=== PATIENT | male | born 1960 | race Caucasian/White ===

== ENCOUNTER 2016-07-12 10:45 | Day surgery (SDC) | payer OTHER ==
[2016-07-12] MEDS ORDERED: SIMETHICONE 40 MG/0.6 ML 30 ML BOTTLE PO ONE (11:23)
[2016-07-12] MEDS ORDERED: LACTATED RINGERS 1,000 ML IV ONE (11:23)
[2016-07-12] MEDS ORDERED: MIDAZOLAM 2 MG/2 ML VIAL IVP ONE (11:23)
[2016-07-12] MEDS ORDERED: fentaNYL 250 MCG/5 ML VIAL IVP ONE (11:23)
== END 2016-07-12 10:46 | disposition home or self-care (01) ==
PROC: 0DBN8ZX Excision of Sigmoid Colon, Via Natural or Artificial Opening Endoscopic, Diagnostic (ICD-10-PCS; principal; 2016-07-12 11:45)
DX: Z12.11 Encounter for screening for malignant neoplasm of colon (principal); D12.5 Benign neoplasm of sigmoid colon; K64.8 Other hemorrhoids; I10 Essential (primary) hypertension; E11.9 Type 2 diabetes mellitus without complications; Z79.84 Long term (current) use of oral hypoglycemic drugs; Z79.82 Long term (current) use of aspirin; Z83.3 Family history of diabetes mellitus; Z80.0 Family history of malignant neoplasm of digestive organs
CPT/HCPCS: 45385; A9270; J3010; J7120

== ENCOUNTER 2018-12-13 08:00 | Outpatient (CLI) | payer OTHER ==
[2018-12-13 12:52] LABS: BASOPHILS % (AUTO) 0.7 %; EOSINOPHILS # (AUTO) 0.4 10^3/uL (0.0-0.7); EOSINOPHILS % (AUTO) 7.5 %; HGB - HEMOGLOBIN 14.1 g/dL (14.0-18.0); LYMPHOCYTES # (AUTO) 1.9 10^3/uL (1.5-3.5); LYMPHOCYTES % (AUTO) 34.6 %; MEAN CORPUSCULAR HEMOGLOBIN 32.6 pg (27.0-31.0); MEAN CORPUSCULAR VOLUME 96.1 fL (80.0-94.0); MEAN PLATELET VOLUME 9.3 fL (7.4-11.4); MONOCYTES # (AUTO) 0.5 10^3/uL (0.0-1.0); MONOCYTES % (AUTO) 9.1 %; NEUTROPHILS # (AUTO) 2.6 10^3/uL (1.5-6.6); NEUTROPHILS % (AUTO) 47.7 %; PLT - PLATELET COUNT 321 10^3/uL (130-450); RED BLOOD COUNT 4.32 10^6/uL (4.70-6.10); RED CELL DISTRIBUTION WIDTH 12.5 % (12.0-15.0); WHITE BLOOD COUNT 5.5 x10^3/uL (4.8-10.8)
[2018-12-13 13:15] LABS: HB2 TOTAL 15.5 g/dL; HEMOGLOBIN A1C 0.73 g/dL; HEMOGLOBIN A1C % 6.5 % (4.6-6.2)
[2018-12-13 13:34] LABS: CARBON DIOXIDE - CO2 28 mmol/L (21-32); CHLORIDE 101 mmol/L (101-111); SODIUM 140 mmol/L (135-145)
[2018-12-13 13:35] LABS: ALBUMIN 4.5 g/dL (3.2-5.5); ALBUMIN/GLOBULIN RATIO 1.8 (1.0-2.2); ALKALINE PHOSPHATASE 68 IU/L (42-121); ALT ALANINE AMINOTRANSFERASE 20 IU/L (10-60); AST ASPARTATE AMINOTRANSFERASE 21 IU/L (10-42); BILIRUBIN,TOTAL 0.7 mg/dL (0.2-1.0); BUN - BLOOD UREA NITROGEN 27 mg/dL (6-20); CALCIUM 9.5 mg/dL (8.5-10.3); GFR - MDRD 77 (>89); GLUCOSE 130 mg/dL (70-100)
[2018-12-13 13:36] LABS: CHOL/HDL RATIO 1.9 (<5.0); CHOLESTEROL 144 mg/dL; HDL CHOLESTEROL 74 mg/dL
== END 2018-12-13 23:59 ==
LOC: LAB.WCP 08:00
PROVIDERS: ATTEND Family Medicine
DX: E11.9 Type 2 diabetes mellitus without complications (principal); E78.5 Hyperlipidemia, unspecified; Z12.5 Encounter for screening for malignant neoplasm of prostate; I10 Essential (primary) hypertension
CPT/HCPCS: 36415; 80053; 80061; 83036; 83721; 84153; 84443; 85025

== ENCOUNTER 2019-11-01 19:25 | Outpatient (CLI) | payer OTHER ==
--- NOTE | 2019-11-02 09:37 | Ultrasound Report ---
PROCEDURE: Head or Neck Soft Tissue INDICATIONS: ADENOPATHY TECHNIQUE: Real time scanning was performed of the neck region of interest, with image documentation . COMPARISON: None. FINDINGS: There is a mildly hypervascular hypoechoic mass within the left level 1B lymph node region measuring 24 x 14 x 25 mm. There is no visualization of a fatty hilum. IMPRESSION: Hypervascular hypoechoic mass within the left neck as above. While this could be related to reactive adenopathy, given lack of morphologic features of the normal enlarged lymph node, other etiologies bowling [place] as neoplasm should be considered. Further evaluation with CT and potentially biopsy is recommended . Reviewed by: Mattie White MD on 11/02/2019 9:36 AM PDT Approved by: Mattie White MD on 11/02/2019 9:36 AM PDT Station ID: [id number]
== END 2019-11-01 19:26 | disposition home or self-care (01) ==
LOC: DI 19:25
PROVIDERS: ATTEND Family Medicine
DX: R93.89 Abnormal findings on diagnostic imaging of other specified body structures (principal)
CPT/HCPCS: 76536

== ENCOUNTER 2019-11-07 08:00 | Outpatient (CLI) | payer OTHER ==
[2019-11-07 19:40] LABS: CALCIUM 9.2 mg/dL (8.5-10.3); CREATININE 0.9 mg/dL (0.6-1.2)
== END 2019-11-07 23:59 | disposition home or self-care (01) ==
LOC: LAB 08:00
PROVIDERS: ATTEND Physician Assistant
DX: Z79.899 Other long term (current) drug therapy (principal)
CPT/HCPCS: 36415; 80048

== ENCOUNTER 2019-11-07 17:42 | Outpatient (CLI) | payer OTHER ==
[2019-11-07 18:06] LABS: MICROALBUM/CREATININE RATIO,UR 3.7 ug/mg (<30.0); MICROALBUMIN,URINE 0.5 mg/dL (0-300.0)
[2019-11-07] MEDS ORDERED: IOVERSOL 320 100 ML VIAL IVP ONE ×2 (18:58→20:08)
--- NOTE | 2019-11-08 13:49 | CT Report ---
PROCEDURE: SOFT TISSUE NECK W INDICATIONS: ADENOPATHY CONTRAST: IV CONTRAST: Optiray 320 ml: 100 PO CONTRAST: *NO PO CONTRAST TECHNIQUE: After the administration of intravenous contrast, 3.0 mm axial sections acquired from the sella to th e aortic arch. Additional oblique axial 3.0 mm sections acquired through the pharynx. 3 mm thick co ira reformats were generated. For radiation dose reduction, the following was used: automated exp osure control, adjustment of mA and/or kV according to patient size. COMPARISON: Correlation is made with prior ultrasound dated 11/01/2019. FINDINGS: Image quality: Excellent. Lymph nodes: The area of clinical concern is marked with a soft tissue marker. Immediately deep to t his marker, there is an abnormally enlarged lymph nodes seen on the left at level 2A that measures 19 x 14 mm in greatest axial dimension, with a craniocaudal extent of 2.7 cm. Additional borderline pro minent level 2 lymph nodes are seen. No definite enlarged right-sided lymph nodes are seen. Vessels: Visualized vasculature appears patent. Neck spaces: The oropharynx, nasopharynx, and pharynx demonstrate no mucosal lesions. The vocal cor ds, false vocal cords, pyriform sinuses, epiglottis, vallecula, and tongue base all appear normal. E xtramucosal spaces appear unremarkable. Glands: The parotid and submandibular glands appear normal. The thyroid is normal in size. Miscellaneous: Visualized brain and orbits appear normal. Minimal emphysematous changes are seen at the lung apices. Superficial soft tissues appear normal. Bones: No suspicious bony lesions. Visualized sinuses and mastoids appear unremarkable. IMPRESSION: There is an enlarged left level 2A lymph node. In a patient of this age, this is highly suspicious fo r metastatic disease. ENT consultation and biopsy are recommended for further evaluation. Reviewed by: Marques Butts MD on 11/08/2019 12:47 PM [facility] Approved by: Marques Butts MD on 11/08/2019 12:47 PM VERONICA Station ID: [id number]
== END 2019-11-07 17:43 | disposition home or self-care (01) ==
LOC: LAB 17:42
PROVIDERS: ATTEND Family Medicine
DX: R59.0 Localized enlarged lymph nodes (principal)
CPT/HCPCS: 70491; 82043; 82570; Q9967

== ENCOUNTER 2020-07-14 07:37 | Outpatient (CLI) | payer OTHER ==
[2020-07-14 12:09] LABS: MICROALBUM/CREATININE RATIO,UR 2.8 ug/mg (<30.0); MICROALBUMIN,URINE 0.6 mg/dL (0-300.0)
[2020-07-14 12:30] LABS: ALBUMIN 4.6 g/dL (3.2-5.5); ALBUMIN/GLOBULIN RATIO 1.8 (1.0-2.2); ALKALINE PHOSPHATASE 70 IU/L (42-121); ALT ALANINE AMINOTRANSFERASE 16 IU/L (10-60); AST ASPARTATE AMINOTRANSFERASE 19 IU/L (10-42); BILIRUBIN,TOTAL 0.6 mg/dL (0.2-1.0); BUN - BLOOD UREA NITROGEN 29 mg/dL (6-20); CALCIUM 9.7 mg/dL (8.5-10.3); CARBON DIOXIDE - CO2 28 mmol/L (21-32); CHLORIDE 98 mmol/L (101-111); CHOL/HDL RATIO 2.1 (<5.0); CHOLESTEROL 163 mg/dL; GFR - MDRD 77 (>89); GLUCOSE 119 mg/dL (70-100); HDL CHOLESTEROL 79 mg/dL; LDL CHOLESTEROL,CALCULATED 75 mg/dL; LDL/HDL RATIO 0.9 (<3.6); POTASSIUM 4.3 mmol/L (3.5-5.0); SODIUM 136 mmol/L (135-145); TOTAL PROTEIN 7.2 g/dL (6.7-8.2); TRIGLYCERIDES 47 mg/dL; VLDL CHOLESTEROL 9 mg/dL
[2020-07-14 12:37] LABS: THYROID STIMULATING HORMONE 0.71 uIU/mL (0.34-5.60)
[2020-07-14 12:48] LABS: FOLATE 17.41 ng/mL (5.90 - >24.8)
[2020-07-14 13:02] LABS: BASOPHILS % (AUTO) 0.7 %; EOSINOPHILS # (AUTO) 0.1 10^3/uL (0.0-0.7); EOSINOPHILS % (AUTO) 4.5 %; HCT - HEMATOCRIT 42.2 % (42.0-52.0); HGB - HEMOGLOBIN 14.3 g/dL (14.0-18.0); LYMPHOCYTES # (AUTO) 0.6 10^3/uL (1.5-3.5); LYMPHOCYTES % (AUTO) 20.8 %; MEAN CORPUSCULAR HEMOGLOBIN 32.1 pg (27.0-31.0); MEAN CORPUSCULAR HGB CONC 33.9 g/dL (32.0-36.0); MEAN CORPUSCULAR VOLUME 94.6 fL (80.0-94.0); MEAN PLATELET VOLUME 9.1 fL (7.4-11.4); MONOCYTES # (AUTO) 0.5 10^3/uL (0.0-1.0); MONOCYTES % (AUTO) 15.6 %; NEUTROPHILS # (AUTO) 1.7 10^3/uL (1.5-6.6); NEUTROPHILS % (AUTO) 58.4 %; PLT - PLATELET COUNT 266 10^3/uL (130-450); RED BLOOD COUNT 4.46 10^6/uL (4.70-6.10); RED CELL DISTRIBUTION WIDTH 11.3 % (12.0-15.0); WHITE BLOOD COUNT 2.9 x10^3/uL (4.8-10.8)
[2020-07-14 13:08] LABS: SLIDE REVIEW? Indicated
[2020-07-14 13:19] LABS: ESTIMATED AVERAGE GLUCOSE 143 mg/dL (70-100); HEMOGLOBIN A1c% 6.6 % (4.27-6.07)
[2020-07-14 13:39] LABS: PLATELET ESTIMATE, MANUAL NORMAL (130-450,000) (NORMAL); PLATELET MORPHOLOGY NORMAL APPEARANCE (NORMAL); RBC MORPHOLOGY (MULTIPLE) NORMAL APPEARANCE (NORMAL); WBC MORPHOLOGY (MULTIPLE) NORMAL APPEARANCE (NORMAL)
== END 2020-07-14 23:59 | disposition home or self-care (01) ==
LOC: LAB.WCP 07:37
PROVIDERS: ATTEND Internal Medicine
DX: E11.9 Type 2 diabetes mellitus without complications (principal); Z12.5 Encounter for screening for malignant neoplasm of prostate
CPT/HCPCS: 36415; 80053; 80061; 81599; 82043; 82570; 82607; 82746; 82784; 83036; 83721; 84153; 84155; 84165; 84207; 84443; 85025; 86334

== ENCOUNTER 2020-12-15 08:00 | Outpatient (CLI) | payer OTHER ==
[2020-12-15 12:25] LABS: BASOPHILS % (AUTO) 0.7 %; EOSINOPHILS # (AUTO) 0.3 10^3/uL (0.0-0.7); EOSINOPHILS % (AUTO) 7.4 %; HGB - HEMOGLOBIN 14.3 g/dL (14.0-18.0); LYMPHOCYTES # (AUTO) 0.9 10^3/uL (1.5-3.5); LYMPHOCYTES % (AUTO) 19.9 %; MEAN CORPUSCULAR HGB CONC 33.3 g/dL (32.0-36.0); MEAN CORPUSCULAR VOLUME 96.2 fL (80.0-94.0); MEAN PLATELET VOLUME 9.4 fL (7.4-11.4); MONOCYTES # (AUTO) 0.6 10^3/uL (0.0-1.0); MONOCYTES % (AUTO) 12.7 %; NEUTROPHILS # (AUTO) 2.6 10^3/uL (1.5-6.6); NEUTROPHILS % (AUTO) 59.1 %; PLT - PLATELET COUNT 293 10^3/uL (130-450); RED BLOOD COUNT 4.47 10^6/uL (4.70-6.10); RED CELL DISTRIBUTION WIDTH 12.4 % (12.0-15.0); WHITE BLOOD COUNT 4.3 x10^3/uL (4.8-10.8)
[2020-12-15 12:49] LABS: ESTIMATED AVERAGE GLUCOSE 143 mg/dL (70-100); HEMOGLOBIN A1c% 6.6 % (4.27-6.07)
[2020-12-15 12:52] LABS: FREE T3 3.31 pg/mL (2.5-3.9); THYROID STIMULATING HORMONE 2.39 uIU/mL (0.34-5.60)
[2020-12-15 13:07] LABS: ALBUMIN 4.9 g/dL (3.2-5.5); ALBUMIN/GLOBULIN RATIO 1.9 (1.0-2.2); BILIRUBIN,TOTAL 0.7 mg/dL (0.2-1.0); CREATININE 0.9 mg/dL (0.6-1.2); POTASSIUM 4.3 mmol/L (3.5-5.0); TOTAL PROTEIN 7.5 g/dL (6.7-8.2)
== END 2020-12-15 23:59 | disposition home or self-care (01) ==
LOC: LAB.WCP 08:00
PROVIDERS: ATTEND Internal Medicine
DX: C09.9 Malignant neoplasm of tonsil, unspecified (principal); E11.9 Type 2 diabetes mellitus without complications
CPT/HCPCS: 36415; 80053; 83036; 83615; 84443; 84481; 85025

== ENCOUNTER 2021-04-22 08:00 | Outpatient (CLI) | payer OTHER ==
[2021-04-22 12:38] LABS: ESTIMATED AVERAGE GLUCOSE 137 mg/dL (70-100); HEMOGLOBIN A1c% 6.4 % (4.27-6.07)
[2021-04-22 13:00] LABS: BUN - BLOOD UREA NITROGEN 32 mg/dL (6-20); CALCIUM 9.6 mg/dL (8.5-10.3); CARBON DIOXIDE - CO2 30 mmol/L (21-32); CHLORIDE 100 mmol/L (101-111); CHOL/HDL RATIO 1.9 (<5.0); CHOLESTEROL 137 mg/dL; CREATININE 0.8 mg/dL (0.6-1.2); GFR - MDRD 99 (>89); GLUCOSE 122 mg/dL (70-100); HDL CHOLESTEROL 71 mg/dL; LDL CHOLESTEROL,CALCULATED 57 mg/dL; LDL/HDL RATIO 0.8 (<3.6); POTASSIUM 4.2 mmol/L (3.5-5.0); SODIUM 137 mmol/L (135-145); TRIGLYCERIDES 43 mg/dL; VLDL CHOLESTEROL 9 mg/dL
[2021-04-22 13:05] LABS: CREATININE,URINE 67.8 mg/dL; MICROALBUM/CREATININE RATIO,UR 2.9 ug/mg (<30.0); MICROALBUMIN,URINE 0.2 mg/dL (0-300.0)
== END 2021-04-22 23:59 ==
LOC: LAB.WCP 08:00
PROVIDERS: ATTEND Internal Medicine
DX: E11.9 Type 2 diabetes mellitus without complications (principal)
CPT/HCPCS: 36415; 80048; 80061; 82043; 82570; 83036; 83721

== ENCOUNTER 2021-10-21 07:04 | Outpatient (CLI) | payer OTHER ==
[2021-10-21 11:49] LABS: ESTIMATED AVERAGE GLUCOSE 134 mg/dL (70-100); HEMOGLOBIN A1c% 6.3 % (4.27-6.07)
[2021-10-21 11:50] LABS: BASOPHILS % (AUTO) 0.8 %; EOSINOPHILS # (AUTO) 0.1 10^3/uL (0.0-0.7); EOSINOPHILS % (AUTO) 2.9 %; HCT - HEMATOCRIT 41.3 % (42.0-52.0); LYMPHOCYTES # (AUTO) 0.8 10^3/uL (1.5-3.5); LYMPHOCYTES % (AUTO) 20.5 %; MEAN CORPUSCULAR HGB CONC 33.9 g/dL (32.0-36.0); MEAN CORPUSCULAR VOLUME 94.3 fL (80.0-94.0); MEAN PLATELET VOLUME 9.3 fL (7.4-11.4); MONOCYTES # (AUTO) 0.5 10^3/uL (0.0-1.0); MONOCYTES % (AUTO) 12.1 %; NEUTROPHILS # (AUTO) 2.4 10^3/uL (1.5-6.6); NEUTROPHILS % (AUTO) 63.4 %; PLT - PLATELET COUNT 268 10^3/uL (130-450); RED BLOOD COUNT 4.38 10^6/uL (4.70-6.10); RED CELL DISTRIBUTION WIDTH 12.4 % (12.0-15.0); WHITE BLOOD COUNT 3.8 x10^3/uL (4.8-10.8)
[2021-10-21 11:57] LABS: ALBUMIN 4.5 g/dL (3.2-5.5); ALBUMIN/GLOBULIN RATIO 1.7 (1.0-2.2); ALKALINE PHOSPHATASE 64 IU/L (42-121); ALT ALANINE AMINOTRANSFERASE 18 IU/L (10-60); AST ASPARTATE AMINOTRANSFERASE 19 IU/L (10-42); BILIRUBIN,TOTAL 0.6 mg/dL (0.2-1.0); BUN - BLOOD UREA NITROGEN 28 mg/dL (6-20); CALCIUM 9.7 mg/dL (8.5-10.3); CARBON DIOXIDE - CO2 29 mmol/L (21-32); CHLORIDE 101 mmol/L (101-111); CHOL/HDL RATIO 1.9 (<5.0); CHOLESTEROL 139 mg/dL; GFR - MDRD 76 (>89); GLUCOSE 130 mg/dL (70-100); HDL CHOLESTEROL 75 mg/dL; POTASSIUM 4.3 mmol/L (3.5-5.0); SODIUM 139 mmol/L (135-145); TOTAL PROTEIN 7.1 g/dL (6.7-8.2); TRIGLYCERIDES 36 mg/dL
[2021-10-21 12:10] LABS: THYROID STIMULATING HORMONE 1.45 uIU/mL (0.34-5.60)
[2021-10-21 12:14] LABS: CREATININE,URINE 138.6 mg/dL; MICROALBUM/CREATININE RATIO,UR 2.9 ug/mg (<30.0); MICROALBUMIN,URINE 0.4 mg/dL (0-300.0)
== END 2021-10-21 07:05 | disposition home or self-care (01) ==
LOC: LAB.N 07:04
PROVIDERS: ATTEND Internal Medicine
DX: I10 Essential (primary) hypertension (principal); E11.9 Type 2 diabetes mellitus without complications; Z12.5 Encounter for screening for malignant neoplasm of prostate; F41.9 Anxiety disorder, unspecified; F32.A Depression, unspecified
CPT/HCPCS: 36415; 80053; 80061; 82043; 82570; 83036; 83721; 84153; 84443; 85025

== ENCOUNTER 2022-05-24 08:34 | Outpatient (CLI) | payer OTHER ==
[2022-05-24 12:20] LABS: CALCIUM 9.6 mg/dL (8.5-10.3); CREATININE 0.9 mg/dL (0.6-1.2); POTASSIUM 4.6 mmol/L (3.5-5.0)
[2022-05-24 14:03] LABS: ESTIMATED AVERAGE GLUCOSE 146 mg/dL (70-100); HEMOGLOBIN A1c% 6.7 % (4.27-6.07)
== END 2022-05-24 08:35 | disposition home or self-care (01) ==
LOC: LAB.N 08:34
PROVIDERS: ATTEND Internal Medicine
DX: E11.9 Type 2 diabetes mellitus without complications (principal)
CPT/HCPCS: 36415; 80048; 83036

== ENCOUNTER 2023-02-02 07:19 | Outpatient (CLI) | payer OTHER ==
[2023-02-02 12:24] LABS: BASOPHILS # (AUTO) 0.1 10^3/uL (0.0-0.1); BASOPHILS % (AUTO) 1.3 %; EOSINOPHILS # (AUTO) 0.2 10^3/uL (0.0-0.7); HGB - HEMOGLOBIN 13.8 g/dL (14.0-18.0); LYMPHOCYTES # (AUTO) 0.8 10^3/uL (1.5-3.5); LYMPHOCYTES % (AUTO) 20.2 %; MEAN CORPUSCULAR HEMOGLOBIN 31.9 pg (27.0-31.0); MEAN CORPUSCULAR HGB CONC 33.7 g/dL (32.0-36.0); MEAN CORPUSCULAR VOLUME 94.9 fL (80.0-94.0); MEAN PLATELET VOLUME 9.3 fL (7.4-11.4); MONOCYTES # (AUTO) 0.6 10^3/uL (0.0-1.0); MONOCYTES % (AUTO) 13.9 %; NEUTROPHILS # (AUTO) 2.4 10^3/uL (1.5-6.6); NEUTROPHILS % (AUTO) 59.3 %; PLT - PLATELET COUNT 309 10^3/uL (130-450); RED BLOOD COUNT 4.32 10^6/uL (4.70-6.10); RED CELL DISTRIBUTION WIDTH 12.8 % (12.0-15.0)
[2023-02-02 12:48] LABS: ALBUMIN 4.7 g/dL (3.2-5.5); ALBUMIN/GLOBULIN RATIO 2.1 (1.0-2.2); ALKALINE PHOSPHATASE 61 IU/L (42-121); ALT ALANINE AMINOTRANSFERASE 15 IU/L (10-60); AST ASPARTATE AMINOTRANSFERASE 19 IU/L (10-42); BILIRUBIN,TOTAL 0.5 mg/dL (0.2-1.0); BUN - BLOOD UREA NITROGEN 23 mg/dL (6-20); CALCIUM 10.2 mg/dL (8.5-10.3); CARBON DIOXIDE - CO2 31 mmol/L (21-32); CHLORIDE 101 mmol/L (101-111); CHOL/HDL RATIO 1.9 (<5.0); CHOLESTEROL 140 mg/dL; CREATININE 0.9 mg/dL (0.6-1.3); GFR - MDRD 86 (>89); GLUCOSE 135 mg/dL (74-104); HDL CHOLESTEROL 74 mg/dL; LDL CHOLESTEROL,CALCULATED 56 mg/dL; LDL/HDL RATIO 0.8 (<3.6); POTASSIUM 4.5 mmol/L (3.5-4.5); SODIUM 137 mmol/L (135-145); TOTAL PROTEIN 6.9 g/dL (6.4-8.9); TRIGLYCERIDES 49 mg/dL (48-352); VLDL CHOLESTEROL 10 mg/dL
[2023-02-02 13:02] LABS: CREATININE,URINE 199.4 mg/dL
[2023-02-02 13:34] LABS: ESTIMATED AVERAGE GLUCOSE 140 mg/dL (70-100); HEMOGLOBIN A1c% 6.5 % (4.27-6.07)
[2023-02-02 13:51] LABS: THYROID STIMULATING HORMONE 0.91 uIU/mL (0.34-5.60)
== END 2023-02-02 07:20 | disposition home or self-care (01) ==
LOC: LAB.N 07:19
PROVIDERS: ATTEND Internal Medicine
DX: E78.5 Hyperlipidemia, unspecified (principal); E11.9 Type 2 diabetes mellitus without complications; Z12.5 Encounter for screening for malignant neoplasm of prostate; I10 Essential (primary) hypertension; F41.9 Anxiety disorder, unspecified; F32.A Depression, unspecified
CPT/HCPCS: 36415; 80053; 80061; 82043; 82570; 83036; 83721; 84153; 84443; 85025

== ENCOUNTER 2023-06-01 08:46 | Outpatient (CLI) | payer OTHER | END 2023-06-01 08:47 | disposition critical access hospital (66) | LOC: EMS 08:46 | DX: R55 Syncope and collapse (principal); R11.0 Nausea; R03.1 Nonspecific low blood-pressure reading | CPT/HCPCS: A0425; A0427 ==

== ENCOUNTER 2023-06-01 09:11 | Emergency (ER) | payer OTHER ==
[2023-06-01 09:25] VITALS: O2SAT 100
[2023-06-01] MEDS: SODIUM CHLORIDE 0.9% 1,000 ML IV STA (09:29)
--- NOTE | 2023-06-01 09:32 | XRAY Report ---
PROCEDURE: Chest 1V INDICATIONS: syncope TECHNIQUE: One view of the chest was acquired. COMPARISON: None. FINDINGS: Surgical changes and devices: None. Lungs and pleura: No pleural effusions or pneumothorax. Lungs are clear. Mediastinum: Mediastinal contours appear normal. Heart size is normal. Bones and chest wall: No suspicious bony lesions. Overlying soft tissues appear unremarkable. IMPRESSION: No acute cardiopulmonary process. Reviewed by: Ceasar Briseno MD on 06/01/2023 9:31 AM [facility] [[email or web address]] Approved by: Ceasar Briseno MD on 06/01/2023 9:31 AM [facility] [[email or web address]] Station ID: [id number]
[2023-06-01 09:40] LABS: BASOPHILS % (AUTO) 0.3 %; EOSINOPHILS # (AUTO) 0.1 10^3/uL (0.0-0.7); EOSINOPHILS % (AUTO) 1.9 %; HCT - HEMATOCRIT 33.1 % (42.0-52.0); LYMPHOCYTES % (AUTO) 13.5 %; MEAN CORPUSCULAR HEMOGLOBIN 31.7 pg (27.0-31.0); MEAN CORPUSCULAR HGB CONC 33.2 g/dL (32.0-36.0); MEAN CORPUSCULAR VOLUME 95.4 fL (80.0-94.0); MEAN PLATELET VOLUME 8.6 fL (7.4-11.4); MONOCYTES # (AUTO) 0.7 10^3/uL (0.0-1.0); MONOCYTES % (AUTO) 9.5 %; NEUTROPHILS # (AUTO) 5.4 10^3/uL (1.5-6.6); NEUTROPHILS % (AUTO) 74.5 %; PLT - PLATELET COUNT 265 10^3/uL (130-450); RED BLOOD COUNT 3.47 10^6/uL (4.70-6.10); WHITE BLOOD COUNT 7.2 x10^3/uL (4.8-10.8)
[2023-06-01 09:58] LABS: ALBUMIN 3.3 g/dL (3.2-5.5); ALBUMIN/GLOBULIN RATIO 2.1 (1.0-2.2); BILIRUBIN,TOTAL 0.4 mg/dL (0.2-1.0); CALCIUM 7.9 mg/dL (8.5-10.3); CREATININE 0.7 mg/dL (0.6-1.3); POTASSIUM 4.1 mmol/L (3.5-4.5); TOTAL PROTEIN 4.9 g/dL (6.4-8.9)
[2023-06-01] MEDS: HYDROcod/ACETAM 5/325 MG TABLET PO STA (11:14)
--- NOTE | 2023-06-01 11:19 | ED Physician Documentation ---
PD HPI SYNCOPE - Stated complaint Stated Complaint: SYNCOPE/POST SURGERY - Chief complaint Chief Complaint: Neuro - History obtained from History obtained from: Patient, Family - Additional information Additional information: Patient is a 62-year-old male presenting for evaluation of a syncopal episode that occurred this morning. Patient had shoulder surgery on Tuesday. He states that he went into [facility] for this outpatient procedure and had 3 things corrected in the shoulder. His surgery started around 930 and he says he was discharged around noon or 1230. The surgery only lasted approximately an hour. Patient states that he was sleeping in his recliner as he has been. This morning he wanted his sling removed so that he could start his range of motion exercises as he was instructed. His helped him stand up and removed his sling. He started moving his shoulder around and started feeling nauseous. was behind him. She states that he started feeling nauseous and felt warm and had a brief syncopal episode lasting a few seconds. She lowered him down to the ground. There was no headache. There is no witnessed seizure activity. When he regained consciousness he she helped him to the bathroom but he again felt lightheaded and she again lowered him down. Patient denies a headache. No chest pain or shortness of air. No abdominal symptoms with nausea, vomiting or diarrhea. He has been taking hydrocodone every 6 hours and last took a dose around 5:00 this morning. His nerve block wore off yesterday afternoon. He feels that he has been able to hydrate but Has had decreased oral intake.No numbness or tingling in extremities.EMS noted that his initial blood pressures were in the 90s which have improved with IV fluids. Patient reports feeling back to to his baseline at this time. Review of Systems Constitutional: denies: Fever Cardiac: denies: Chest pain / pressure Respiratory: denies: Dyspnea GI: reports: Nausea. denies: Abdominal Pain : denies: Dysuria Neurologic: denies: Headache, Head injury PD PAST MEDICAL HISTORY - Past Medical History Past Medical History: Yes Cardiovascular: Hypertension Respiratory: None Endocrine/Autoimmune: Type 2 diabetes GI: None : None HEENT: None Psych: Depression, Anxiety Musculoskeletal: None Derm: None - Past Surgical History Past Surgical History: Yes Ortho: Other - Present Medications Home Medications: Ambulatory Orders Medication Instructions Recorded Confirmed Atorvastatin Calcium 10 mg PO DAILY 07/12/16 06/01/23 Lisinopril/Hydrochlorothiazide 1 each PO DAILY 07/12/16 06/01/23 [Lisinopril-Hctz 20-12.5 mg Tab] Sertraline HCl 50 mg PO DAILY 07/12/16 06/01/23 Verapamil HCl [Verapamil ER] 180 mg PO DAILY 07/12/16 06/01/23 metFORMIN [Glucophage] 500 mg PO .DAILY AM 07/12/16 06/01/23 HYDROcod/ACETAM 5/325 [[place] 5/325] 1 tablet PO Q6H PRN 06/01/23 06/01/23 Ondansetron Odt [Zofran] 4 mg TL Q6H PRN #10 tablet 06/01/23 metFORMIN [Glucophage] 1,000 mg PO .DAILY PM 06/01/23 06/01/23 valACYclovir [Valtrex] 1,000 mg PO BID PRN 06/01/23 06/01/23 - Allergies Allergies/Adverse Reactions: Allergies Allergy/AdvReac Type Severity Reaction Status Date / Time No Known Drug Allergies Allergy Verified 06/01/23 09:20 - Social History Does the pt smoke?: No Smoking Status: Never smoker Does the pt drink ETOH?: No Does the pt have substance abuse?: No - POLST Patient has POLST: No PD ED PE NORMAL - General General: Alert and oriented X 3, No acute distress, Well developed/nourished - HEENT HEENT: Atraumatic, Moist mucous membranes, Pharynx benign - Neck Neck: Supple, no meningeal sign - Cardiac Cardiac: RRR, Strong equal pulses - Respiratory Respiratory: No respiratory distress, Clear bilaterally - Abdomen Abdomen: Normal bowel sounds, Soft, Non tender, Non distended - Derm Derm: Warm and dry - Extremities Extremities: Other (Dressing to right shoulder, symmetric follow up specialist strength bilaterally, sensation intact in bilateral upper extremities, radial pulses intact bilaterally) - Neuro Neuro: Alert and oriented X 3, No motor deficit, No sensory deficit, Normal speech Results - Vitals Vitals: Vital Signs - 24 hr 06/01/23 06/01/23 06/01/23 09:13 11:23 11:57 Temperature 36 C L Heart Rate 54 L 55 L Heart Rate [ 58 L Sitting] Heart Rate [ 60 Standing] Heart Rate [ 56 L Supine] Respiratory 16 18 Rate Blood Pressure 126/62 136/78 H Blood Pressure 141/72 H [Sitting] Blood Pressure 142/72 H [Standing] Blood Pressure 139/68 H [Supine] O2 Saturation 100 100 06/01/23 12:30 Temperature 36.4 C L Heart Rate Heart Rate [ Sitting] Heart Rate [ Standing] Heart Rate [ Supine] Respiratory 17 Rate Blood Pressure Blood Pressure [Sitting] Blood Pressure [Standing] Blood Pressure [Supine] O2 Saturation Oxygen O2 Source Room air - EKG (time done) 0930 EKG releavant findings:: EKG personally interpreted by author of this note. Relevant findings are: Rate 52, sinus bradycardia, no STEMI, QTc 404, no ST depressions - Labs Labs: Laboratory Tests 06/01/23 06/01/23 09:34 09:34 WBC 7.2 RBC 3.47 L Hgb 11.0 L Hct 33.1 L MCV 95.4 H MCH 31.7 H MCHC 33.2 RDW 13.0 Plt Count 265 MPV 8.6 Neut # (Auto) 5.4 Lymph # (Auto) 1.0 L Pratt # (Auto) 0.7 Eos # (Auto) 0.1 Baso # (Auto) 0.0 Absolute Nucleated RBC 0.00 Nucleated RBC % 0.0 Sodium 141 Potassium 4.1 Chloride 110 Carbon Dioxide 28 Anion Gap 3.0 L BUN 14 Creatinine 0.7 Estimated GFR (MDRD) 115 Glucose 114 H Calcium 7.9 L Total Bilirubin 0.4 AST 14 ALT 12 Alkaline Phosphatase 50 Total Protein 4.9 L Albumin 3.3 Globulin 1.6 L Albumin/Globulin Ratio 2.1 Lipase 42 PD Medical Decision Making - ED course Complexity details: reviewed results, re-evaluated patient, d/w patient, d/w family ED course: Patient is a 62-year-old male presenting for evaluation after syncopal episode that occurred in the setting of recent surgery and increased pain while trying to mobilize. There was no head injury. He is feeling back to normal. He initially was hypotensive but here vital signs have been stable. EKG is reassuring with no signs of acute ischemia.No deficits to suggest a stroke. No chest pain or shortness of air to suggest cardiac etiology.Mild anemia noted on CBC from patient's baseline. Patient is feeling better here with IV fluids. Orthostatics are negative. Although he did have surgery 2 days ago it appears that it was an outpatient and a short surgery so does not appear that he was immobilized for prolonged amount of time. No leg swelling or pain. Patient counseled on need for close follow-up with primary care provider regarding syncope as well as his anemia. He is advised on concerning symptoms to return for. Departure - Departure Disposition: 01 Home, Self Care Clinical Impression: Syncope, Anemia Condition: Stable Instructions: ED Fainting Unkn Cause Prescriptions: Ondansetron Odt [Zofran] 4 mg TL Q6H PRN #10 tablet PRN Reason: Nausea / Vomiting Comments: You were evaluated after a fainting episode today. Your blood test show that you are slightly anemic with a hemoglobin of 11. This is a little bit lower than it was last year. I would recommend close follow-up with your primary care provider regarding this lab testing as well as your fainting spells to recheck it and see if you need further testing. I have sent a prescription for an antinausea medication to [facility] in [place].Return to the emergency department with any reoccurring or worsening symptoms. Forms: PCP List Discharge Date/Time: 06/01/23 12:31
[2023-06-01 12:07] VITALS: BP 139/68
== END 2023-06-01 12:31 | disposition home or self-care (01) ==
LOC: EDUNIT# → ED 09:11
DX: R55 Syncope and collapse (principal); D64.9 Anemia, unspecified; I10 Essential (primary) hypertension; E11.9 Type 2 diabetes mellitus without complications; Z79.84 Long term (current) use of oral hypoglycemic drugs; Z98.890 Other specified postprocedural states
CPT/HCPCS: 36415; 71045; 80053; 83690; 85025; 93005; 99283; 99284; A9270

== ENCOUNTER 2023-08-09 07:04 | Outpatient (CLI) | payer OTHER ==
[2023-08-09 12:11] LABS: BASOPHILS % (AUTO) 0.9 %; EOSINOPHILS # (AUTO) 0.2 10^3/uL (0.0-0.7); EOSINOPHILS % (AUTO) 5.4 %; HCT - HEMATOCRIT 43.7 % (42.0-52.0); HGB - HEMOGLOBIN 14.6 g/dL (14.0-18.0); LYMPHOCYTES # (AUTO) 0.9 10^3/uL (1.5-3.5); MEAN CORPUSCULAR HEMOGLOBIN 31.6 pg (27.0-31.0); MEAN CORPUSCULAR HGB CONC 33.4 g/dL (32.0-36.0); MEAN CORPUSCULAR VOLUME 94.6 fL (80.0-94.0); MEAN PLATELET VOLUME 9.4 fL (7.4-11.4); MONOCYTES # (AUTO) 0.5 10^3/uL (0.0-1.0); MONOCYTES % (AUTO) 11.7 %; NEUTROPHILS # (AUTO) 2.7 10^3/uL (1.5-6.6); NEUTROPHILS % (AUTO) 61.8 %; PLT - PLATELET COUNT 319 10^3/uL (130-450); RED BLOOD COUNT 4.62 10^6/uL (4.70-6.10); RETICULOCYTE COUNT % (AUTO) 0.86 % (0.5-2.3); WHITE BLOOD COUNT 4.4 x10^3/uL (4.8-10.8)
[2023-08-09 12:42] LABS: CALCIUM 10.3 mg/dL (8.5-10.3); CREATININE 0.9 mg/dL (0.6-1.3); POTASSIUM 4.5 mmol/L (3.5-4.5)
[2023-08-09 12:45] LABS: FERRITIN 30.2 ng/mL (23.9-336.2)
[2023-08-09 13:06] LABS: ESTIMATED AVERAGE GLUCOSE 137 mg/dL (70-100); HEMOGLOBIN A1c% 6.4 % (4.27-6.07)
== END 2023-08-09 07:05 | disposition home or self-care (01) ==
LOC: LAB.N 07:04
PROVIDERS: ATTEND Internal Medicine
DX: D64.9 Anemia, unspecified (principal); E11.9 Type 2 diabetes mellitus without complications
CPT/HCPCS: 36415; 80048; 82607; 82728; 83036; 83540; 84466; 85025; 85045